=== PATIENT | female | born 2000 | race American Indian/Alaskan Native ===

== ENCOUNTER 2021-05-23 14:19 | Emergency (ER) | payer SELFPAY ==
[2021-05-23 14:23] VITALS: BP 112/68
[2021-05-23 21:06] LABS: HCG Qualitative,Urine Negative (Negative)
[2021-05-23 21:08] LABS: Bilirubin,Urine NEG (Negative); Blood,Urine NEG (Negative); Color,Urine Yellow (Yellow); Mucus,Urine 3+ /HPF
[2021-05-23 21:09] LABS: Protein,Urine >500 mg/dL (Negative)
--- NOTE | 2021-05-23 22:19 | Emergency Department Report ---
ED Abdominal Pain HPI - General Chief Complaint: Abdominal Pain Stated Complaint: ABD PAIN Time Seen by Provider: 05/23/21 20:40 Source: patient, EMS Mode of arrival: Ambulatory Limitations: No Limitations - History of Present Illness Initial Comments: 21-year-old black female with no past medical history presents to the emergency department for evaluation of 1 week history of worsening abdominal pain and fatigue. She states that it feels like her stomach is heavy and she has nausea and vomiting generally in the morning time. She states that she feels full all of the time and has not had a good appetite. She denies fever, dysuria, and vaginal discharge. She states that pain is 1 out of 10 and she is unsure when she had her last bowel movement. MD Complaint: abdominal pain -: Gradual Radiation: none Migration to: no migration Severity scale (0 -10): 2 Quality: fullness Consistency: intermittent Associated Symptoms: nausea, vomiting. denies: diarrhea, fever, chills, dysuria, hematemesis, hematochezia, melena, hematuria, anorexia, syncope - Related Data LMP Date: 04/22/21 Allergies Allergy/AdvReac Type Severity Reaction Status Date / Time No Known Allergies Allergy Verified 05/23/21 14:20 ED Review of Systems ROS: Stated complaint: ABD PAIN Other details as noted in HPI Comment: All other systems reviewed and negative Constitutional: denies: chills, fever Respiratory: denies: shortness of breath, SOB with exertion, SOB at rest Cardiovascular: denies: chest pain, palpitations, dyspnea on exertion, orthopnea, edema, syncope, paroxysmal nocturnal dyspnea Gastrointestinal: abdominal pain, nausea, vomiting. denies: diarrhea, hematemesis, melena, hematochezia Genitourinary: denies: urgency, dysuria, frequency, hematuria, discharge, dyspareunia Musculoskeletal: denies: back pain Skin: denies: rash, lesions Neurological: denies: headache, weakness, numbness, paresthesias, abnormal gait ED Past Medical Hx - Past Medical History Previous Medical History?: No - Surgical History Past Surgical History?: No ED Physical Exam - General Limitations: No Limitations General appearance: alert, in no apparent distress - Head Head exam: Absent: atraumatic, normocephalic - Eye Eye exam: Present: normal appearance. Absent: conjunctival injection - Neck Neck exam: Present: normal inspection. Absent: lymphadenopathy - Respiratory Respiratory exam: Present: normal lung sounds bilaterally. Absent: respiratory distress, wheezes, rales, rhonchi, stridor, chest wall tenderness, accessory muscle use - Cardiovascular Cardiovascular Exam: Present: tachycardia, normal heart sounds - GI/Abdominal GI/Abdominal exam: Present: soft, tenderness (Left upper quadrant), normal bowel sounds. Absent: distended, guarding, rebound, rigid - Extremities Exam Extremities exam: Present: normal inspection, full ROM, normal capillary refill. Absent: pedal edema, joint swelling - Back Exam Back exam: Absent: CVA tenderness (R), CVA tenderness (L) - Neurological Exam Neurological exam: Present: alert, oriented X3, normal gait - Psychiatric Psychiatric exam: Present: normal affect, normal mood - Skin Skin exam: Present: warm, dry, intact, normal color ED Course Vital Signs 05/23/21 14:21 Temperature 98.8 F Pulse Rate 112 H Respiratory 16 Rate Blood Pressure 112/68 [Left] O2 Sat by Pulse 98 Oximetry ED Medical Decision Making - Radiology Data Radiology results: report reviewed, image reviewed KUB: FINDINGS: TUBES / LINES: None. BOWEL GAS PATTERN: No significant abnormality. FREE AIR / EXTRALUMINAL GAS: None seen. ADDITIONAL FINDINGS: No significant additional findings. IMPRESSION: 1. No significant abnormality. - Medical Decision Making 21-year-old black female with no past medical history presents to the emergency department for evaluation of 1 week history of worsening abdominal pain and fatigue. She states that it feels like her stomach is heavy and she has nausea and vomiting generally in the morning time. She states that she feels full all of the time and has not had a good appetite. She denies fever, dysuria, and vaginal discharge. She states that pain is 1 out of 10 and she is unsure when she had her last bowel moveme Urine negative for UTI and . KUB noted to have stool to left foot quadrant when visualized. No acute abnormalities noted on exam. Patient will be treated with 1 bottle of mag citrate in the ER and advised to take MiraLAX at home as needed. She is advised to follow-up with primary care provider or GI for further evaluation and management. Critical care attestation.: If time is entered above; I have spent that time in minutes in the direct care of this critically ill patient, excluding procedure time. ED Disposition Clinical Impression: Constipation Qualifiers: Constipation type: unspecified constipation type Qualified Code(s): K59.00 - Constipation, unspecified Disposition: HOME / SELF CARE / HOMELESS Is pt being admited?: No Does the pt Need Aspirin: No Condition: Stable Instructions: Abdominal Pain (ED), Constipation, Adult, [id number] Additional Instructions: Take [id number] MiraLAX daily for the next week until you are having regu lar bowel movements. Follow-up with primary care provider for further evaluation and management. Return to the ER for any concerning symptoms. Referrals: CHET COFFEY MD [Referring] - 3-5 Days CHARLY CAMPOS MD [Staff Physician] - 3-5 Days Time of Disposition: 22:52
[2021-05-23] MEDS ORDERED: NALOXONE 2 MG/2 ML INJ ONE ×2 (22:34)
--- NOTE | 2021-05-23 22:37 | XRay Report ---
XR abdomen 1V ap INDICATION / CLINICAL INFORMATION: abdominal pain, no bm. COMPARISON: None available. TECHNIQUE: One view supine AP abdomen. FINDINGS: TUBES / LINES: None. BOWEL GAS PATTERN: No significant abnormality. FREE AIR / EXTRALUMINAL GAS: None seen. ADDITIONAL FINDINGS: No significant additional findings. IMPRESSION: 1. No significant abnormality. Signer Name: Andriy Prescott II, MD Signed: 05/23/2021 10:32 PM Workstation Name: [id number]
[2021-05-23] MEDS: MAGNESIUM CITRATE 300 ML ORAL LIQD PO ONE (23:02)
== END 2021-05-23 22:51 | disposition home or self-care (01) ==
LOC: ED 14:19
DX: K59.00 Constipation, unspecified (principal); R10.9 Unspecified abdominal pain
CPT/HCPCS: 74018; 81001; 81025; 99284; J2310